=== PATIENT | male | born 1980 | race Caucasian/White ===

== ENCOUNTER 2016-11-04 | Emergency (ER) | payer OTHER | END 2016-11-04 12:25 | disposition home or self-care (01) ==

== ENCOUNTER 2018-12-30 10:18 | Outpatient (CLI) | payer OTHER | END 2018-12-30 10:19 | disposition home or self-care (01) | LOC: SC 10:18 | PROVIDERS: ATTEND Internal Medicine Pulmonary Disease | DX: R06.81 Apnea, not elsewhere classified (principal); G47.8 Other sleep disorders; R06.83 Snoring | CPT/HCPCS: 99203; 99212 ==

== ENCOUNTER 2019-01-30 19:19 | Outpatient (CLI) | payer OTHER | END 2019-01-30 19:20 | disposition home or self-care (01) | LOC: SC 19:19 | PROVIDERS: ATTEND Internal Medicine Pulmonary Disease | DX: G47.33 Obstructive sleep apnea (adult) (pediatric) (principal) | CPT/HCPCS: 95810 ==

== ENCOUNTER 2021-03-16 12:45 | Outpatient (CLI) | payer OTHER ==
[2021-03-16 13:11] VITALS: BP 122/73
--- NOTE | 2021-03-16 13:11 | SLEEP CARE CONSULTATION ---
Information from patient questionnaire entered by Alyson Kaiser. I have reviewed and concur with the information entered by Alyson Kaiser. This document represents the service I personally performed and the decisions made by , Marivel Cevallos ARNP. History of Present Illness Service Date and Time: 03/16/2021 1245 Previous diagnosis: Moderate, Obstructive Sleep Apnea-Hypopnea Syndrome AHI: 21.0 (in 2019) Reason for follow up: annual (last seen 01/2019), other (restart process as never able to follow up in 2019 ) Prior sleep [facility]: Yes [facility] Type of Sleep Study: Polysomnography HPI additional information: TRACY SLADE was diagnosed to have moderate, AHI 21.0, obstructive sleep apnea- hypopnea syndrome in 2019 and comes in today to restart process since unable to follow up in 2019. Subjective Initial [place] Sleepiness Scale score: 10 (in 2019) Current [place] Sleepiness Scale score: 10 Allergies and Home Medications Home medication list reviewed: Yes (no new meds) Review of Systems Review of systems same as previous: Yes (no changes) Physical Exam Blood Pressure: 122/73 Cuff size: long Heart Rate: 87 O2 Saturation: 96 Height: 5 ft 10 in Weight: 238 lb Body Mass Index: 34.1 BMI Classification: Obese Impression and Plan 1. Suspected Obstructive Sleep Apnea-Hypopnea Syndrome, as previously diagnosed in 2019 with moderate JASON and as suggested by a history of loud and irregular snoring, observed cessation of breath while asleep, frequent awakening during the night, unrefreshed sleep, and excessive daytime sleepiness. It has been over a year since his last sleep study and he was unable to start treatment at that time. I recommend proceeding to polysomnography to confirm the diagnosis and to assess severity. I informed the patient of what the sleep studies involve and after some discussion, obtained agreement to proceed. The pathophysiology of obstructive sleep apnea-hypopnea syndrome was discussed with the patient and health risks of cardiovascular and cerebrovascular disease if not treated. 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 Patient agreed to plan. * Schedule polysomnography +- manual CPAP titration study and return in 1-2 weeks after the study to discuss result and initiate therapy. * Avoid long distance driving or driving when feeling sleepy. * Avoid alcohol, sedative and muscle relaxant around bedtime. * Attempt to lose weight. * Review instructions provided by trained office staff on how to prepare for the sleep study. * Return for follow-up after sleep study completed. Counseling Topics: Weight loss health impact Visit Type: In Office Time Spent with Patient (minutes): 14 Provider Statement: I spent 100% of the Face to Face Visit with the patient with greater than 50% spent counseling the patient and coordination of care.
== END 2021-03-16 12:46 | disposition home or self-care (01) ==
LOC: SC 12:45
PROVIDERS: ATTEND Nurse Practitioner Family
DX: G47.33 Obstructive sleep apnea (adult) (pediatric) (principal); E66.9 Obesity, unspecified; Z68.34 Body mass index [BMI] 34.0-34.9, adult
CPT/HCPCS: 99212

== ENCOUNTER 2021-03-20 10:57 | Outpatient (CLI) | payer OTHER | END 2021-03-20 10:58 | disposition home or self-care (01) | LOC: SC 10:57 | PROVIDERS: ATTEND Nurse Practitioner Family | DX: G47.33 Obstructive sleep apnea (adult) (pediatric) (principal); E66.9 Obesity, unspecified; Z68.34 Body mass index [BMI] 34.0-34.9, adult | CPT/HCPCS: 95806 ==

== ENCOUNTER 2021-03-24 10:25 | Outpatient (CLI) | payer OTHER ==
--- NOTE | 2021-03-24 10:40 | SLEEP CARE CONSULTATION ---
Information from patient questionnaire entered by Alyson Kaiser. I have reviewed and concur with the information entered by Alyson Kaiser. This document represents the service I personally performed and the decisions made by , Marivel Cevallos ARNP. History of Present Illness Service Date and Time: 03/24/2021 1025 Initial [place] Sleepiness Scale score: 10 (in 2019) Current [place] Sleepiness Scale score: 16 Additional HPI information: TRACY SLADE returns for follow up and results of the recently performed home sleep study. I explained the pathophysiology behind obstructive sleep apnea. We then spent quite a bit of time discussing different treatment options. For mild obstructive sleep apnea, surgery and oral appliance are alternatives to nasal CPAP therapy but in moderate or severe cases, nasal CPAP is the most effective and reliable treatment. Because apnea is primarily in supine position, then positional management therapy could be effective. Methods discussed such as positioning with pillows, using a T-shirt with tennis balls in the back, and shown commercial products that have a pillow format on back to prevent supine sleep. I reviewed the impact of weight changes on sleep apnea and strongly recommended losing weight. After some discussion, the patient opted to go with the nasal CPAP therapy. Nasal autoCPAP set at 4-15 cmH20 will be ordered with rationale explained. A manual titration study will be ordered if unable to find optimal pressure with office adjustments. I explained how CPAP machine works with sample devices [id number] Dreamstation and [employer] [id number] and what to expect when using the machine. Using CPAP every night in order to get used to it was emphasized. Patient advised to put CPAP mask on before getting into bed so as not to fall asleep without CPAP. To assist acclimation to CPAP use, it could also be used for a short time during day while reading or watching TV. The patient was instructed to call the CPAP supplier to discuss any mechanical problem that may occur. If the mask given is uncomfortable or is difficult to keep on through the night even with adjustment, contact the CPAP supplier as many will replace with another mask style if notified before 30 days. If snoring or perceives is not getting enough air or too much air from the machine, notify this office. [facility] patient education PAP tips reviewed and given to patient. Patient counseled not drink alcohol less than 4 hours before bedtime as it can increase snoring and apnea. Patient was cautioned about risks of drowsy driving until sleepiness symptoms resolve. Sleep Study - Results Type of Sleep Study: Home sleep study Prior sleep studies: Yes (poly) Year and Where: 2019 - [facility] Polysomnography/Home Sleep Study results: Physician Impression: The quality of the study is fair due to partial loss of airflow and pulse oximetry signals. The length of the study is adequate (> 240 minutes). Please also see the tabulated and graphic data. 1. Obstructive Sleep Apnea-Hypopnea (ICD-10 G47.33), moderate, with an AHI of 22.3/hr and tamara SaO2 of 71%. During the study, the patient had 86 apneas (86 obstructive, 0 central, 0 mixed) and 40 hypopneas. The longest episode lasted 83.0 seconds. The respiratory events occurred more frequently during supine sleep (supine AHI was 39.8 and non-supine, 12.84). 2. Hypoxemia (ICD-10 R09.02), moderate, with the lowest oxygen saturation of 71 % and 28.2 minutes with SaO2 under 90%. Baseline oxygen saturation was normal (Average oxygen saturation was 92%). Allergies and Home Medications Home medication list reviewed: Yes (no changes) Review of Systems Review of systems same as previous: Yes (no changes) Physical Exam Heart Rate: 74 O2 Saturation: 97 Height: 5 ft 10 in Weight: 236 lb Body Mass Index: 33.8 BMI Classification: Obese Impression and Plan 1. Obstructive Sleep Apnea-Hypopnea Syndrome, moderate, with lowest oxygen saturation of 71%. Obviously this is the cause of the patients symptoms of unrefreshed sleep, and excessive daytime sleepiness. Positive pressure therapy could benefit his overall health and reduce risks for cardiovascular or cerebrovascular adverse events. As mentioned above, the patient will be started on nasal autoCPAP therapy with pressure set at 4-15 cmH2O. A manual titration study will be completed if unable to find optimal treatment pressure with office adjustments. Compliance guidelines also reviewed. A copy of compliance guidelines will be given for reference at check out. Because the apnea is more severe supine, I instructed to avoid sleeping supine using pillow positioning until able to start CPAP use. 2. Hypoxemia, moderate, with the lowest oxygen saturation of 71 % and 28.2 minutes with SaO2 under 90%. His baseline oxygen saturation was normal with an average oxygen saturation of 92%. * Nasal auto CPAP therapy, pressure at 4-15 cm H2O. * Attempt to lose weight. * Avoid alcohol consumption near bedtime. * Avoid supine sleep until using CPAP. * The patient is again cautioned about driving until sleepiness completely resolves. * Return one month after CPAP obtained. I will assess response to therapy and compliance at that time. Counseling Topics: Weight loss health impact Visit Type: In Office Time Spent with Patient (minutes): 12 Provider Statement: I spent 100% of the Face to Face Visit with the patient with greater than 50% spent counseling the patient and coordination of care.
== END 2021-03-24 10:26 | disposition home or self-care (01) ==
LOC: SC 10:25
PROVIDERS: ATTEND Nurse Practitioner Family
DX: G47.33 Obstructive sleep apnea (adult) (pediatric) (principal); R09.02 Hypoxemia; E66.9 Obesity, unspecified; Z68.33 Body mass index [BMI] 33.0-33.9, adult
CPT/HCPCS: 99212

== ENCOUNTER 2021-07-19 07:38 | Outpatient (CLI) | payer OTHER ==
--- NOTE | 2021-07-19 08:17 | SLEEP CARE CONSULTATION ---
Information from patient questionnaire entered by Alsyon Kaiser. I have reviewed and concur with the information entered by Alyson Kaiser. This document represents the service I personally performed and the decisions made by , Marivel Cevallos ARNP. History of Present Illness Service Date and Time: 07/19/2021 0738 Previous diagnosis: Moderate, Obstructive Sleep Apnea-Hypopnea Syndrome AHI: 22.3 (in 2020)(21.0 in 2019) Reason for follow up: first compliance Equipment type: CPAP Equipment obtained from: Other ([facility]; got initial supplies) Mask style: Nasal Backup mask available: No (will keep old mask set when replaced) Last cushion change: 1 week Prior sleep studies: Yes (poly) Year and Where: 2020(HST) and 2018(PSG) - [facility] Sleep Type of Sleep Study: Home sleep study HPI additional information: TRACY SLADE was diagnosed to have moderate, AHI 22.3, obstructive sleep apnea- hypopnea syndrome and returned today for CPAP therapy first compliance follow- up. CPAP Compliance Data - Data Reviewed with Patient Average duration of nightly device use: 4 hr 49 min Compliance rate %: 57 Current pressure setting (cmH2O): 4-15 (median 8.6, avg 11.9, max 13.2) Humidity settin Average residual AHI: 3.6 Central apnea: 0.2 Obstructive apnea: 2.0 Subjective Missed days of use due to: reports: travel, other (power outage) Patient concerns: reports: mask leak noise (from changing positions). denies: aerophagia, mask discomfort, air blowing in eyes, condensation in mask/hose, nasal congestion, dry mouth, nose, throat, epistaxis, other Observed to snore while using device: No Current pressure setting perceived as: too low On therapy, patient: reports: sleeping better, awakening more refreshed, being more awake and alert during the day, more rested overall. denies: drowsiness while driving Initial [place] Sleepiness Scale score: 10 (in 2019) Current [place] Sleepiness Scale score: 10 Allergies and Home Medications Home medication list reviewed: Yes (no changes) Review of Systems Review of systems same as previous: Yes (no changes) Physical Exam Heart Rate: 67 O2 Saturation: 97 Height: 5 ft 10 in Weight: 246 lb (w/boots and fatigues on) Body Mass Index: 35.3 BMI Classification: Obese Impression and Plan 1. Obstructive Sleep Apnea-Hypopnea Syndrome, moderate, with fair treatment compliance and good apnea control. On CPAP therapy, the patient has better sleep quality and is more rested overall. Patient is felt that the pressure can be too low. He likes it better when it is up near 10 cm H2O. I will adjust this today. The patients pressure will be changed to autoCPAP 10-14 cmH20 to reflect pressure being used and for patient comfort. Patient advised to contact me if pressure change is uncomfortable so that it can be adjusted. Goals for apnea control discussed. He has had some minimal mask leak noises just from turning from side to side for which he has no concerns. Patient states he has been wearing the mask for 5 to 6 hours a night. We discussed compliance since he is just under by bringing up the hours because of missed days and days under 4 hours that are affecting his percentage. He voiced understanding and states he is trying to use it every night. Patient was encouraged to lose weight for their overall health and to reduce apneas. Patient's apnea severity and rationale for treatment to reduce apnea, improve sleep quality and reduce cardiovascular and cerebrovascular events was reviewed. * Change auto CPAP pressure to 10-14 cmH2O * Notify me if snoring with mask or feeling that the pressure is too much or too little * Attempt to lose weight * Call this office if any problems using CPAP * Return for follow up in 1-2 months, or sooner if concerns arise Counseling Topics: Spare mask, Weight loss health impact Visit Type: In Office Time Spent with Patient (minutes): 17 Provider Statement: I spent 100% of the Face to Face Visit with the patient with greater than 50% spent counseling the patient and coordination of care.
== END 2021-07-19 07:39 | disposition home or self-care (01) ==
LOC: SC 07:38
PROVIDERS: ATTEND Nurse Practitioner Family
DX: G47.33 Obstructive sleep apnea (adult) (pediatric) (principal); E66.9 Obesity, unspecified; Z68.35 Body mass index [BMI] 35.0-35.9, adult
CPT/HCPCS: 99212

== ENCOUNTER 2021-07-27 07:24 | Outpatient (CLI) | payer OTHER ==
--- NOTE | 2021-07-27 10:20 | MRI Report ---
PROCEDURE: Cervical Spine W/O INDICATIONS: CERVICAL RADICULOPATHY TECHNIQUE: Noncontrast sagittal T1 spin echo and T2 fast spin echo, sagittal STIR, foraminal oblique sagittal T2 fast spin echo, and axial gradient echo or T2 fast spin echo through the cervical spine. COMPARISON: None. FINDINGS: Image quality: Excellent. Alignment and Curvature: There is normal bony alignment. Bone Marrow: Marrow demonstrates normal overall signal. There is moderate reactive signal within th e end plates adjacent the C5-C6 and C6-C7 intervertebral discs. Mild reactive signal within the end b ut adjacent to the C3-C4, C4-C5, and C7-T1 intervertebral discs. Spinal Cord: Visualized spinal cord has normal size and signal. No cerebellar tonsillar herniation. Paraspinous Soft Tissues: No paravertebral masses. Prevertebral soft tissues are normal in thicknes s. C2-C3: Mild disc height loss and desiccation. Mild facet and uncovertebral hypertrophy. Mild canal s tenosis. Mild bilateral foraminal stenosis. C3-C4: Mild disc height loss and desiccation. Mild facet and uncovertebral hypertrophy. Mild canal stenosis. Mild bilateral foraminal stenosis. C4-C5: Mild disc height loss and desiccation. Mild facet and uncovertebral hypertrophy bilaterally. Mild canal stenosis. Mild bilateral foraminal stenosis. C5-C6: Moderate disc height loss and desiccation. Moderate diffuse disc bulge. Mild facet and uncove rtebral hypertrophy bilaterally. Mild canal stenosis. Moderate right and severe left foraminal stenos is. Left C6 nerve root compression. C6-C7: Moderate disc height loss and desiccation. Moderate diffuse disc bulge. Mild facet and uncove rtebral hypertrophy bilaterally, left greater than right. Mild canal stenosis. Severe left and mild r ight foraminal stenosis. Left C7 nerve root compression. C7-T1: Normal in appearance. IMPRESSION: 1. Multilevel degenerative disc and facet disease, as well as uncovertebral hypertrophy. 2. Mild multilevel canal stenoses. 3. Multilevel foraminal stenoses, worst at C5-C6 and C6-C7 where there is associated intraforaminal n erve root compression. Recommend correlation with clinical symptoms to ascertain relevance of these f indings. Reviewed by: Salome Weiss MD on 07/27/2021 10:19 AM PDT Approved by: Salome Weiss MD on 07/27/2021 10:19 AM PDT Station ID: [id number]
== END 2021-07-27 07:25 | disposition home or self-care (01) ==
LOC: DI 07:24
PROVIDERS: ATTEND Student in an Organized Health Care Education/Training Program
DX: M50.31 Other cervical disc degeneration, high cervical region (principal); M48.02 Spinal stenosis, cervical region; M47.22 Other spondylosis with radiculopathy, cervical region